=== PATIENT | female | born 1980 | race African-American/Black ===

== ENCOUNTER 2020-12-21 22:20 | Emergency (ER) | payer SELFPAY ==
[2020-12-21 22:30] VITALS: BP 144/72; PULSE 107; TEMP 98.5; BMI 37.1
[2020-12-21] MEDS ORDERED: TETRACAINE 0.5% OPHTH SOLN 2 ML BOTTLE ONE (23:58)
[2020-12-21] MEDS ORDERED: FLUORESCEIN NA 1 EA STRIP ONE (23:58)
== END 2020-12-22 00:33 | disposition home or self-care (01) ==
LOC: JER 22:20
PROC: 0JQ10ZZ Repair Face Subcutaneous Tissue and Fascia, Open Approach (ICD-10-PCS; principal; 2020-12-21)
DX: S01.81XA Laceration without foreign body of other part of head, initial encounter (principal); S09.90XA Unspecified injury of head, initial encounter; Z77.098 Contact with and (suspected) exposure to other hazardous, chiefly nonmedicinal, chemicals
CPT/HCPCS: 99284-25